=== PATIENT | female | born 1985 | race Caucasian/White ===

== ENCOUNTER → 2016-09-13 | Outpatient (CLI) | payer OTHER ==
[~2016-09-13] MED LIST: ACET50TA PO; ANUS2.5C2 EXT; DOCU10ELUD PO; FISH1000 PO; IBUP600T26 PO; MOM30SS PO; PRENTAB66 PO
--- NOTE | 2016-09-13 14:14 | REP ---
OBSTETRIC SONOGRAPHY: HISTORY: 8+ weeks. Supervision of . FINDINGS: Scanning through the urine filled bladder demonstrates a viable single intrauterine gestation. The crown-rump length of the embryonic pole is 8 mm. This corresponds to a gestational age estimate of 6 weeks 5 days. heart rate is recorded at 135 beats per minute. There is a 1.5 x 0.6 x 1.4 cm fluid collection anterior to the gestational sac consistent with a small subchorionic hemorrhage. No extrauterine abnormalities observed. No gross anomaly. IMPRESSION: Viable single intrauterine gestation at 6 weeks 5 days by crown-rump length. JARON by sonography May 04, 2017. Signed by Bud Serna MD 09/13/2016 04:27 P
== END ==
LOC: M RAD 12:17
PROVIDERS: ATTEND Family Medicine
DX: Z36 Encounter for antenatal screening of mother (principal)

== ENCOUNTER → 2016-09-24 | Outpatient (REF) | payer OTHER ==
[2016-09-25 13:11] LABS: BASO % 0.3 % (0.0-1.0); EOS # 0.1 K/mm3 (0.0-0.50); LARGE UNSTAINED CELL # 0.1 K/mm3 (0.0-0.4); LARGE UNSTAINED CELL % 1.3 % (0.0-4.0); LYMPH # 1.7 K/mm3 (1.5-4.5); LYMPH % 22.8 % (24.0-44.0); MEAN CORPUSCULAR HEMOGLOBIN 31.5 pg (27.0-33.0); MEAN CORPUSCULAR HGB CONC 35.4 g/dl (32.0-36.5); MEAN CORPUSCULAR VOLUME 89.1 fl (80.0-96.0); MONO # 0.3 K/mm3 (0.0-0.8); MONO % 4.8 % (0.0-5.0); NEUTROPHILS # 4.9 K/mm3 (1.8-7.7); NEUTROPHILS % 69.9 % (36.0-66.0); PLATELET COUNT, AUTOMATED 222 k/mm3 (150-450); RED CELL DISTRIBUTION WIDTH 12.7 % (11.5-14.5)
[2016-09-25 13:30] LABS: HBsAg Prenatal NEGATIVE (NEGATIVE)
[2016-09-25 13:57] LABS: GLUCOSE,RANDOM 92 MG/DL (LESS THAN 200)
== END ==
LOC: M SFHCCLAY 15:48
PROVIDERS: ATTEND Family Medicine
DX: Z36 Encounter for antenatal screening of mother (principal)